=== PATIENT | male | born 1990 | race Two or more races ===

== ENCOUNTER 2023-11-16 07:21 | Emergency (ER) | payer OTHER ==
[~2023-11-16] VITALS: Ht 175.3 cm; Wt 77.0 kg
[2023-11-16 07:23] VITALS: PULSE 57
[2023-11-16 07:39] VITALS: TEMP 98.8
[2023-11-16] MEDS: TETanus/Pertussis (Acell)/Diphther VAC/PF (Tdap-Adult) 0.5ml syringe IMVAC ONE (07:48)
[2023-11-16 09:25] VITALS: BP 124/45; RESP 15; O2SAT 98
== END 2023-11-16 09:56 | disposition home or self-care (01) ==
LOC: ER 07:22
DX: S61.112A Laceration without foreign body of left thumb with damage to nail, initial encounter (principal); W31.9XXA Contact with unspecified machinery, initial encounter; Y93.89 Activity, other specified; Y92.89 Other specified places as the place of occurrence of the external cause; Y99.8 Other external cause status
CPT/HCPCS: 29130; 73140; 90471; 90715; 99283; A6222; A6258; A6449

== ENCOUNTER 2023-11-18 08:49 | Emergency (ER) | payer OTHER ==
[~2023-11-18] VITALS: Ht 175.3 cm; Wt 85.2 kg
[2023-11-18 10:26] VITALS: BP 122/70; PULSE 58; RESP 16; TEMP 98.1; O2SAT 98
== END 2023-11-18 10:28 | disposition home or self-care (01) ==
LOC: ER 08:49
DX: S61.002A Unspecified open wound of left thumb without damage to nail, initial encounter (principal); W45.8XXA Other foreign body or object entering through skin, initial encounter; Y93.89 Activity, other specified; Y92.89 Other specified places as the place of occurrence of the external cause; Y99.8 Other external cause status
CPT/HCPCS: 99281; A6222

== ENCOUNTER 2023-11-21 14:45 | Emergency (ER) | payer OTHER ==
[~2023-11-21] VITALS: Ht 175.3 cm; Wt 96.2 kg
[2023-11-21 16:13] VITALS: BP 122/78; PULSE 74; RESP 20; TEMP 98.2; O2SAT 99
== END 2023-11-21 16:16 | disposition home or self-care (01) ==
LOC: ER 14:45
DX: S61.002A Unspecified open wound of left thumb without damage to nail, initial encounter (principal); X58.XXXA Exposure to other specified factors, initial encounter; Y93.89 Activity, other specified; Y92.89 Other specified places as the place of occurrence of the external cause; Y99.8 Other external cause status
CPT/HCPCS: 99281

== ENCOUNTER 2024-08-28 09:02 | Emergency (ER) | payer OTHER ==
[~2024-08-28] VITALS: Ht 175.3 cm; Wt 93.2 kg
[2024-08-28 09:05] VITALS: BP 112/63; PULSE 62; RESP 18; O2SAT 98
[2024-08-28] MEDS: LIDOcaine/PRILOcaine 5gm cream TP ONE (09:34)
[2024-08-28 09:57] VITALS: TEMP 97.9
== END 2024-08-28 09:59 | disposition home or self-care (01) ==
LOC: ER 09:03
DX: S41.112A Laceration without foreign body of left upper arm, initial encounter (principal); X58.XXXA Exposure to other specified factors, initial encounter; Y93.89 Activity, other specified; Y92.89 Other specified places as the place of occurrence of the external cause; Y99.8 Other external cause status
CPT/HCPCS: 12001; 99282; A6449

== ENCOUNTER 2024-09-07 15:38 | Emergency (ER) | payer OTHER ==
[~2024-09-07] VITALS: Ht 175.3 cm; Wt 96.0 kg
[2024-09-07 15:51] VITALS: BP 116/58; PULSE 64; RESP 16; TEMP 98; O2SAT 99
--- NOTE | 2024-09-07 16:05 | Physician Documentation ---
History of Present Illness ~ Chief Complaint: Staple Removal Stated Complaint: STITCH REMOVAL Time Seen by MD: 15:40 Primary Medical Doctor: [facility] HPI 43-year-old male returns to the ED to have his jorge a removed after having a laceration repair in his left forearm proximally one week ago.. Denies any increased pain swelling or discharge. Tetanus Within 5 Years: Yes Medication Reconciliation Allergies: Coded Allergies: No Known Allergies (Unverified , 08/28/24) Past Medical History Past Medical History: No Pertinent History Past Surgical History: noncontributory Lives In: Home Occupation: employed Review of Systems All Other Systems at this time: Reviewed and Negative ROS As stated above in the HPI, otherwise all systems are reviewed and negative. Physical Exam Vital Signs: Temperature: 98.0, Source: Temporal, Heart Rate: 64, Respiratory Rate: 16, BP: 116/58, Pulse Oximetry: 99, Weight: 96.000 Oxygen Flow Rate: 0 Physical Exam General: Alert, no apparent distress. Respiratory: Lungs clear, no respiratory distress. Cardiovascular: Regular rate and rhythm, no murmurs. Gastrointestinal: Soft, nontender, nondistended. Bowels sounds present. Extremities: He has jorge a on left arm wound well approximated Skin: Normal color, warm and dry. No edema, no ecchymosis. Progress Results/Orders Results/Orders Orders - THEE SAUCEDO NP General Nursing Order (09/07/24 ) Vital Signs 09/07/24 15:51 Temp 98.0 Pulse 64 Resp 16 B/P (MAP) 116/58 Pulse Ox 99 O2 Flow Rate 0 Medical Decision Making Findings [place] removed without difficulty patient toleratedwekl. No signs of infection patient will be discharged with advice home care instructions to encourage h ealing an outpatient settingb Differential Dx:Considerations: Include: Cellulitis, Suture removal, Wound d ehiscence, Other Departure Disposition: HOME / SELF CARE / HOMELESS Impression: Primary Impression: Laceration Condition: Stable Discharge Instructions: Suture Removal, Care After Referrals: NO PRIMARY CARE PROVIDER (PCP) Education Educated: Patient Educated regarding: diagnosis Signature Scribe Signature: u Attestation: The note accurately reflects work and decisions made by me.Thee Lucas NP 09/07/24 20:18 THEE SAUCEDO NP Sep 07, 2024 16:05
== END 2024-09-07 16:10 | disposition home or self-care (01) ==
LOC: ER 15:38
DX: S51.812D Laceration without foreign body of left forearm, subsequent encounter (principal); X58.XXXD Exposure to other specified factors, subsequent encounter
CPT/HCPCS: 99281